=== PATIENT | male | born 1970 | race American Indian/Alaskan Native ===

== ENCOUNTER 2019-07-04 10:37 | Day surgery (SDC) | payer OTHER ==
--- NOTE | 2019-07-04 11:11 | Anesthesia Day of Surgery ---
Anesthesia Day of Surgery - Day of Surgery Patient Examined: Yes Patient H&P Reviewed: Yes Patient is NPO: Yes
--- NOTE | 2019-07-04 11:21 | Anesthesia Consultation ---
Anesthesia Consult and Med Hx Date of service: 07/04/19 - Airway Anesthetic Teeth Evaluation: Good ROM Head & Neck: Adequate Mental/Hyoid Distance: Adequate Mallampati Class: Class II Intubation Access Assessment: Good - Pre-Operative Health Status ASA Pre-Surgery Classification: ASA2 Proposed Anesthetic Plan: General - Pulmonary Hx Asthma: Yes - Cardiovascular System Hx Hypertension: Yes - Central Nervous System Hx Psychiatric Problems: Yes (Depression) - Gastrointestinal Hx Gastroesophageal Reflux Disease: Yes - Endocrine Hx Non-Insulin Dependent Diabetes: Yes (PRE) - Additional Comments Anesthesia Medical History Comments: Incarcerated. R Shoulder pain
[2019-07-04] MEDS ORDERED: ANCEF/STERILE WATER 2 GM/20 ML IV NR (11:30)
[2019-07-04] MEDS ORDERED: ZOFRAN IV PRN (11:31)
[2019-07-04] MEDS ORDERED: SUBLIMAZE IV PRN (11:31)
[2019-07-04] MEDS ORDERED: LACTATED RINGERS 1,000 ML IV SCH (12:00)
[2019-07-04] MEDS ORDERED: SUBLIMAZE ONE (12:19)
[2019-07-04] MEDS ORDERED: XYLOCAINE MPF 2% ONE (12:20)
[2019-07-04] MEDS ORDERED: DIPRIVAN 10 MG/ML IV ONE (12:20)
[2019-07-04] MEDS ORDERED: OMNIPAQUE 300 MG/50 ML (CATH LAB) IV ONE (12:34)
[2019-07-04] MEDS ORDERED: WATER FOR IRRIG STERILE IR ONE (12:35)
--- NOTE | 2019-07-04 13:05 | Post Operative Note ---
Date of procedure: 07/04/19 Pre-op diagnosis: voiding dysfumction Post-op diagnosis: same Findings: normal Procedure: cysto rpgs Anesthesia: GETA Surgeon: RONAK BARRON Estimated blood loss: none Pathology: none Condition: stable Disposition: PACU
--- NOTE | 2019-07-04 13:07 | Discharge Summary ---
Short Stay Discharge Plan Activity: other (no straining ) Weight Bearing Status: Full Weight Bearing Diet: regular Special Instructions: other (inc fluids ) Follow up with: PRIMARY CARE, [Primary Care Provider] - 7 Days RONAK BARRON MD [Staff Physician] - 6 Weeks
--- NOTE | 2019-07-04 13:07 | Operative Report ---
PREOPERATIVE DIAGNOSIS: Difficulty voiding. POSTOPERATIVE DIAGNOSIS: Difficulty voiding. PROCEDURE: Cystoscopy, retrograde. SURGEON: Ayden Paiz MD ANESTHESIA: General. FINDINGS: This is a gentleman with difficulty voiding. He is a young gentleman, said he had prostate problem. He said Flomax has helped. DESCRIPTION OF PROCEDURE: The patient was brought to the operating room and placed on the operating table. Following induction of anesthesia, placed in lithotomy position, prepped and draped in usual sterile fashion. Cystourethroscopy showed a urethra, which was wide open. Bladder neck was open. Prostatic urethra was only about 2.5 cm. Bladder was not trabeculated. The epithelium was smooth. Retrograde showed a delicate collecting system bilaterally with few air bubbles, which drained. The patient tolerated the procedure well. No incision was needed. No dilation was needed. There was no acute abnormality. If he has voiding dysfunction, he needs urodynamics with or without video. JOB# [id number] ANDREA/MARK
--- NOTE | 2019-07-04 13:24 | Post Anesthesia Evaluation ---
- Post Anesthesia Evaluation Patient Participated: Yes Airway Patent: Yes Stable Respiratory Function: Yes Nausea/Vomiting: No Temp > 96.8F: Yes Pain Manageable: Yes Adequeate Hydration: Yes Anesthesia Complications: No Block Receding Appropriately: Not Applicable Patient on Ventilator: No
--- NOTE | 2019-07-04 13:35 | Fluoroscopy Report ---
FLUOROSCOPY RETROGRADE UROGRAPHY HISTORY: Enlarged prostate with voiding dysfunction FINDINGS: Fluoroscopy was provided by radiology during retrograde urography by the urologist. [There is normal filling of both renal collecting systems. No filling defect or abnormal dilatation is ident ified.] IMPRESSION: Unremarkable bilateral retrograde pyelograms Fluoroscopy time: 34 seconds Fluoroscopic images: 5 Signer Name: Delano Deluca Jr, MD Signed: 07/04/2019 1:30 PM Workstation Name: [id number]
[2019-07-04 14:43] VITALS: BP 126/80
== END 2019-07-04 15:03 ==
LOC: OR 10:37
PROVIDERS: ATTEND Urology
DX: N40.0 Benign prostatic hyperplasia without lower urinary tract symptoms (principal); R39.198 Other difficulties with micturition; I10 Essential (primary) hypertension; J45.909 Unspecified asthma, uncomplicated; K21.9 Gastro-esophageal reflux disease without esophagitis; E11.9 Type 2 diabetes mellitus without complications; F32.9 Major depressive disorder, single episode, unspecified; Z87.891 Personal history of nicotine dependence; Z79.899 Other long term (current) drug therapy
CPT/HCPCS: 52005; 74420; 82803; 82962; C1758; J0690; J2704; J3010; J7120; Q9967